=== PATIENT | female | born 1965 | race Caucasian/White ===

== ENCOUNTER 2017-01-29 16:08 | Emergency (ER) | payer OTHER, MEDICAID ==
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
[2017-01-29 16:48] VITALS: BP 148/98
[2017-01-29] MEDS ORDERED: PREDNISONE 20 MG TABLET PO ONE (18:58)
[2017-01-29] MEDS ORDERED: IPRATROPIUM/ALBUTEROL 0.5-2.5 MG/3 ML AMPUL NEB ONE (18:58)
[2017-01-29] MEDS: ALBUTEROL SULFATE 0.083% NEB 2.5 MG/3 ML AMPUL NEB SCH ×2 (19:00→19:30)
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
== END 2017-01-29 19:33 | disposition home or self-care (01) ==
LOC: ER 16:08
DX: M54.2 Cervicalgia (principal); R07.81 Pleurodynia; M54.89 Other dorsalgia; V49.40XA Driver injured in collision with unspecified motor vehicles in traffic accident, initial encounter; J44.1 Chronic obstructive pulmonary disease with (acute) exacerbation; F17.210 Nicotine dependence, cigarettes, uncomplicated; Z71.6 Tobacco abuse counseling; Z99.81 Dependence on supplemental oxygen
CPT/HCPCS: 94640 ×2; 99283; L0120; J7512; J7620